=== PATIENT | female | born 1975 | race Caucasian/White ===

== ENCOUNTER 2022-03-23 10:56 | Emergency (ER) | payer MEDICARE, MEDICAID, OTHER ==
[2022-03-23 11:10] VITALS: BP 174/108; PULSE 78
== END 2022-03-23 11:37 | disposition home or self-care (01) ==
LOC: DL.ED 10:56
DX: K04.7 Periapical abscess without sinus (principal); K02.9 Dental caries, unspecified; K00.7 Teething syndrome; I10 Essential (primary) hypertension; E11.9 Type 2 diabetes mellitus without complications; E03.9 Hypothyroidism, unspecified; F17.210 Nicotine dependence, cigarettes, uncomplicated; Z88.5 Allergy status to narcotic agent; Z79.899 Other long term (current) drug therapy; Z79.4 Long term (current) use of insulin
CPT/HCPCS: 99282